=== PATIENT | male | born 1965 | race Caucasian/White ===

== ENCOUNTER 2018-02-26 08:31 | Emergency (ER) | payer BC ==
[~2018-02-26] VITALS: Ht 182.9 cm; Wt 76.9 kg
[~2018-02-26 08:31] MED LIST: KEFLEX500 MG PO; MOTRIN800 MG PO
[2018-02-26] MEDS ORDERED: TRAMADOL HCL50 MG PO (11:19)
[2018-02-26] MEDS ORDERED: MEDROL DOSEPAK4 MG PO (11:19)
[2018-02-26] MEDS ORDERED: LIDODERM 5% P1 PATCH TD (11:19)
[2018-02-26 11:44] VITALS: BP 144/71
== END 2018-02-26 11:44 | disposition home or self-care (01) ==
LOC: EME 08:31
DX: M54.5 Low back pain (principal); M19.90 Unspecified osteoarthritis, unspecified site; F17.200 Nicotine dependence, unspecified, uncomplicated; Z98.890 Other specified postprocedural states
CPT/HCPCS: 99281; 99284; J1885